=== PATIENT | female | born 1955 | race Two or more races ===

== ENCOUNTER 2016-05-24 08:36 | Emergency (ER) | payer MEDICAID, OTHER ==
[~2016-05-24] VITALS: Ht 170.2 cm; Wt 99.8 kg
[2016-05-24 08:45] VITALS: BP 142/88
[2016-05-24] MEDS ORDERED: KETOROLAC TROMETH 60MG/2ML VIAL IM ONE (10:45)
== END 2016-05-24 11:28 | disposition home or self-care (01) ==
LOC: ER 08:37
DX: S00.03XA Contusion of scalp, initial encounter (principal); S70.12XA Contusion of left thigh, initial encounter; M17.9 Osteoarthritis of knee, unspecified; V43.52XA Car driver injured in collision with other type car in traffic accident, initial encounter; Y93.89 Activity, other specified; Y99.8 Other external cause status; Y92.488 Other paved roadways as the place of occurrence of the external cause
CPT/HCPCS: 70450; 96372; 99284; J1885

== ENCOUNTER 2021-03-08 13:27 | Emergency (ER) | payer MEDICARE, OTHER ==
[~2021-03-08] VITALS: Ht 167.6 cm; Wt 99.8 kg
[2021-03-08 14:45] VITALS: BP 123/64
[2021-03-08] MEDS ORDERED: cefTRIAXone SOD 1,000 MG VL IM ONE (15:00)
[2021-03-08] MEDS ORDERED: HYDROcodone-ACET 5/325MG TAB PO ONE (15:00)
== END 2021-03-08 15:32 | disposition home or self-care (01) ==
LOC: ER 13:27
DX: K02.9 Dental caries, unspecified (principal); I10 Essential (primary) hypertension; E78.5 Hyperlipidemia, unspecified
CPT/HCPCS: 96372; 99283; J0696

== ENCOUNTER 2021-05-03 18:10 | Emergency (ER) | payer MEDICARE, OTHER ==
[~2021-05-03] VITALS: Ht 160 cm; Wt 102.1 kg
[2021-05-03 22:00] LABS: Basophils # (auto) 0.1 10 ^3/uL (0-0.2); Basophils % (auto) 0.4 % (0.0-2.0); Eosinophils # (auto) 0.2 10 ^3/uL (0-0.8); Eosinophils % (auto) 1.7 % (0.0-7.0); Hematocrit 41.2 % (36.0-46.0); Hemoglobin 13.6 g/dL (12.2-16.2); Lymphocytes # (auto) 1.3 10 ^3/uL (0.4-5.4); Mean Corpuscular Hemoglobin 30.9 pg (28.0-32.0); Mean Corpuscular Hgb Conc. 32.9 g/dL (32.0-36.0); Mean Corpuscular Volume 93.7 fL (80.0-100.0); Monocytes # (auto) 0.6 10 ^3/uL (0-1.3); Monocytes % (auto) 4.4 % (0.0-12.0); Neutrophils # (auto) 12.2 10 ^3/uL (1.6-8.6); Neutrophils % (auto) 84.5 % (37.0-80.0); Red Cell Distribution Width 14.2 % (11.8-14.3); White Blood Cell 14.4 10^3/uL (4.4-10.8)
[2021-05-03 22:21] LABS: Albumin 4.1 g/dL (3.4-5.0); Calcium 9.8 mg/dL (8.5-10.1); Potassium 3.5 mmol/L (3.5-5.1)
[2021-05-03 22:23] LABS: BUN/Creatinine Ratio 13.6
[2021-05-03 22:26] LABS: Bilirubin, Total 0.8 mg/dL (0.2-1.0); Total Protein 7.3 g/dL (6.4-8.2)
[2021-05-03 23:37] LABS: Urine Bacteria NONE SEEN /hpf (None Seen); Urine Blood Negative /uL (Negative); Urine Hyaline Cast MANY /lpf (0 - 2); Urine Mucus MANY (None Seen); Urine Specific Gravity 1.025 (1.001-1.035); Urine WBC 27 /hpf (0 - 5)
[2021-05-04] MEDS ORDERED: ONDANSETRON ODT 4 MG TAB PO ONE ×2 (01:15→01:44)
[2021-05-04] MEDS ORDERED: DICYCLOMINE HCL (10MG/ML) 2 ML AMPULE IM ONE ×2 (01:15→01:45)
[2021-05-04 01:55] VITALS: BP 105/82
== END 2021-05-04 02:01 | disposition home or self-care (01) ==
LOC: ER 18:12
DX: R19.7 Diarrhea, unspecified (principal); I10 Essential (primary) hypertension; E78.5 Hyperlipidemia, unspecified; F12.10 Cannabis abuse, uncomplicated
CPT/HCPCS: 36415; 80053; 81001; 85025; 93005; 96372; 99284; J0500; Q0162

== ENCOUNTER 2021-05-10 13:57 | Inpatient (IN) | payer MEDICARE, OTHER ==
[~2021-05-10] VITALS: Ht 170.2 cm; Wt 101.6 kg
[2021-05-10] MEDS ORDERED: SODIUM CHLORIDE 0.9% 500 ML IV ONE (14:15)
[2021-05-10 14:46] LABS: Basophils # (auto) 0 10 ^3/uL (0-0.2); Basophils % (auto) 0.3 % (0.0-2.0); Eosinophils # (auto) 0.2 10 ^3/uL (0-0.8); Eosinophils % (auto) 1.7 % (0.0-7.0); Hematocrit 40.5 % (36.0-46.0); Hemoglobin 13.6 g/dL (12.2-16.2); Lymphocytes # (auto) 1.1 10 ^3/uL (0.4-5.4); Mean Corpuscular Hemoglobin 30.7 pg (28.0-32.0); Mean Corpuscular Hgb Conc. 33.6 g/dL (32.0-36.0); Mean Corpuscular Volume 91.3 fL (80.0-100.0); Monocytes % (auto) 7.2 % (0.0-12.0); Neutrophils % (auto) 82.8 % (37.0-80.0); Nucleated Red Blood Cells % 0.1 %; Red Blood Cells 4.44 10^6/uL (4.0-5.20); White Blood Cell 13.2 10^3/uL (4.4-10.8)
[2021-05-10] MEDS ORDERED: IOHEXOL 300 MG/ML 100ML BOTTLE IJ ONE (14:48)
[2021-05-10 15:02] LABS: Albumin 3.5 g/dL (3.4-5.0); Calcium 9.3 mg/dL (8.5-10.1)
[2021-05-10 15:08] LABS: BUN/Creatinine Ratio 13.4; Bilirubin, Total 0.5 mg/dL (0.2-1.0); Total Protein 7.1 g/dL (6.4-8.2)
[2021-05-10] MEDS ORDERED: SODIUM CHLORIDE 0.9% 1,000 ML IV ONE ×2 (16:30→18:15)
[2021-05-10 19:40] LABS: Urine Bacteria NONE SEEN /hpf (None Seen); Urine Blood Negative /uL (Negative); Urine Specific Gravity 1.009 (1.001-1.035); Urine WBC 4 /hpf (0 - 5)
[2021-05-10] MEDS ORDERED: ONDANSETRON HCL 4 MG/2 ML VIAL BC ONE (21:15)
[2021-05-10] MEDS ORDERED: ACETAMINOPHEN 325 MG TAB PO PRN (21:45)
[2021-05-10] MEDS ORDERED: ONDANSETRON HCL 4 MG/2 ML VIAL IV PRN (21:45)
[2021-05-10] MEDS ORDERED: POTASSIUM CHL 20 Meq TABLET PO ONE (21:45)
[2021-05-10] MEDS ORDERED: PANTOPRAZOLE 40 MG TAB PO ONE (21:45)
[2021-05-10] MEDS: metroNIDAZOLE 500MG/100ML 100 ML IV SCH (22:45)
[2021-05-10] MEDS: HYDROcodone-ACET 5/325MG TAB PO PRN (23:37)
[2021-05-11 05:30] VITALS: BP 96/59
[2021-05-11] MEDS: metroNIDAZOLE 500MG/100ML 100 ML IV SCH ×3 (05:41→22:01)
[2021-05-11] MEDS: HYDROcodone-ACET 5/325MG TAB PO PRN ×4 (05:55→22:01)
[2021-05-11 08:34] LABS: Basophils # (auto) 0 10 ^3/uL (0-0.2); Basophils % (auto) 0.2 % (0.0-2.0); Eosinophils # (auto) 0.3 10 ^3/uL (0-0.8); Eosinophils % (auto) 1.9 % (0.0-7.0); Hemoglobin 11.6 g/dL (12.2-16.2); Lymphocytes # (auto) 0.8 10 ^3/uL (0.4-5.4); Lymphocytes % (auto) 6.4 % (10.0-50.0); Mean Corpuscular Hemoglobin 29.6 pg (28.0-32.0); Mean Corpuscular Hgb Conc. 32.2 g/dL (32.0-36.0); Mean Corpuscular Volume 91.9 fL (80.0-100.0); Monocytes # (auto) 0.9 10 ^3/uL (0-1.3); Neutrophils # (auto) 11.1 10 ^3/uL (1.6-8.6); Neutrophils % (auto) 84.5 % (37.0-80.0); Nucleated Red Blood Cells % 0.1 %; Red Blood Cells 3.91 10^6/uL (4.0-5.20); Red Cell Distribution Width 13.7 % (11.8-14.3); White Blood Cell 13.2 10^3/uL (4.4-10.8)
[2021-05-11 08:52] LABS: Albumin 2.7 g/dL (3.4-5.0); Calcium 8.1 mg/dL (8.5-10.1); Potassium 3.2 mmol/L (3.5-5.1)
[2021-05-11 08:57] LABS: BUN/Creatinine Ratio 16.4; Bilirubin, Total 0.4 mg/dL (0.2-1.0); Total Protein 5.7 g/dL (6.4-8.2)
[2021-05-11] MEDS ORDERED: PANTOPRAZOLE 40 MG TAB PO SCH (10:00)
[2021-05-11] MEDS: SOD CHL 0.9%/ KCL 40MEQ 1,000 ML IV SCH (14:49)
[2021-05-11 22:00] VITALS: BP 106/59
[2021-05-12] MEDS ORDERED: INFLUENZA QUAD 2021-2022 0.5 ML SYRG IM ONE (01:45)
[2021-05-12] MEDS ORDERED: LOSA-69 PO (01:51)
[2021-05-12] MEDS ORDERED: CHOL20007 PO (01:51)
[2021-05-12] MEDS ORDERED: APIX5TAB PO (01:51)
[2021-05-12] MEDS ORDERED: METO25TA5 PO (01:51)
[2021-05-12] MEDS: SOD CHL 0.9%/ KCL 40MEQ 1,000 ML IV SCH ×2 (03:17→18:12)
[2021-05-12 05:00] VITALS: BP 106/59
[2021-05-12] MEDS: metroNIDAZOLE 500MG/100ML 100 ML IV SCH (05:58)
[2021-05-12 06:36] LABS: Basophils # (auto) 0 10 ^3/uL (0-0.2); Basophils % (auto) 0.3 % (0.0-2.0); Eosinophils # (auto) 0.6 10 ^3/uL (0-0.8); Eosinophils % (auto) 5.7 % (0.0-7.0); Hematocrit 34.4 % (36.0-46.0); Hemoglobin 11.3 g/dL (12.2-16.2); Lymphocytes % (auto) 9.5 % (10.0-50.0); Mean Corpuscular Hemoglobin 30.4 pg (28.0-32.0); Mean Corpuscular Hgb Conc. 32.9 g/dL (32.0-36.0); Mean Corpuscular Volume 92.2 fL (80.0-100.0); Monocytes # (auto) 0.8 10 ^3/uL (0-1.3); Neutrophils # (auto) 8.3 10 ^3/uL (1.6-8.6); Neutrophils % (auto) 77.5 % (37.0-80.0); Nucleated Red Blood Cells % 0.1 %; Red Blood Cells 3.73 10^6/uL (4.0-5.20); Red Cell Distribution Width 13.8 % (11.8-14.3); White Blood Cell 10.7 10^3/uL (4.4-10.8)
[2021-05-12 07:08] LABS: BUN/Creatinine Ratio 15.6; Calcium 8.3 mg/dL (8.5-10.1); Potassium 3.2 mmol/L (3.5-5.1)
[2021-05-12 08:00] VITALS: BP 102/65
[2021-05-12 08:44] VITALS: BP 104/63
[2021-05-12] MEDS ORDERED: VANCOMYCIN HCL 125MG/5ML ORAL SOL PO ONE (09:00)
[2021-05-12] MEDS ORDERED: MORPHINE SULFATE INJECTION 2 MG/ML SYRG IV PRN (10:15)
[2021-05-12] MEDS ORDERED: NITROGLYCERIN 0.4 MG SL TAB SL PRN (10:15)
[2021-05-12] MEDS: HYDROcodone-ACET 5/325MG TAB PO PRN ×2 (10:18→21:23)
[2021-05-12] MEDS: VANCOMYCIN HCL 125MG/5ML ORAL SOL PO SCH ×2 (12:00→18:12)
[2021-05-12 13:03] VITALS: BP 102/65
[2021-05-12] MEDS: SODIUM CHLOR 0.9% PF (SALINE LOCK) 10ML VIAL/SYR IV SCH (13:05)
[2021-05-12 16:30] VITALS: BP 99/63
[2021-05-12 22:00] VITALS: BP 107/63
[2021-05-13] MEDS: VANCOMYCIN HCL 125MG/5ML ORAL SOL PO SCH ×4 (00:02→18:02)
[2021-05-13] MEDS: SODIUM CHLOR 0.9% PF (SALINE LOCK) 10ML VIAL/SYR IV SCH ×4 (00:37→22:00)
[2021-05-13 05:31] LABS: BUN/Creatinine Ratio 15.8; Calcium 8.5 mg/dL (8.5-10.1); Potassium 3.7 mmol/L (3.5-5.1)
[2021-05-13] MEDS: HYDROcodone-ACET 5/325MG TAB PO PRN ×3 (05:45→22:58)
[2021-05-13] MEDS: SOD CHL 0.9%/ KCL 40MEQ 1,000 ML IV SCH ×2 (06:15→19:35)
[2021-05-13 08:00] VITALS: BP 101/59
[2021-05-13 09:00] VITALS: BP 101/59
[2021-05-13 13:00] VITALS: BP 121/73
[2021-05-13 16:49] VITALS: BP 97/60
[2021-05-13 22:00] VITALS: BP 99/62
[2021-05-14] MEDS: VANCOMYCIN HCL 125MG/5ML ORAL SOL PO SCH ×5 (00:05→20:00)
[2021-05-14] MEDS: HYDROcodone-ACET 5/325MG TAB PO PRN ×3 (04:26→21:17)
[2021-05-14 05:00] VITALS: BP 112/69
[2021-05-14] MEDS: SODIUM CHLOR 0.9% PF (SALINE LOCK) 10ML VIAL/SYR IV SCH ×3 (06:07→22:00)
[2021-05-14 06:29] LABS: Basophils # (auto) 0 10 ^3/uL (0-0.2); Basophils % (auto) 0.5 % (0.0-2.0); Eosinophils # (auto) 0.5 10 ^3/uL (0-0.8); Eosinophils % (auto) 6.5 % (0.0-7.0); Hematocrit 33.4 % (36.0-46.0); Hemoglobin 11.3 g/dL (12.2-16.2); Lymphocytes # (auto) 1.1 10 ^3/uL (0.4-5.4); Lymphocytes % (auto) 14.1 % (10.0-50.0); Mean Corpuscular Hemoglobin 30.9 pg (28.0-32.0); Mean Corpuscular Hgb Conc. 33.7 g/dL (32.0-36.0); Mean Corpuscular Volume 91.8 fL (80.0-100.0); Monocytes # (auto) 0.6 10 ^3/uL (0-1.3); Monocytes % (auto) 7.2 % (0.0-12.0); Neutrophils # (auto) 5.8 10 ^3/uL (1.6-8.6); Neutrophils % (auto) 71.7 % (37.0-80.0); Nucleated Red Blood Cells % 0.1 %; Red Blood Cells 3.64 10^6/uL (4.0-5.20); Red Cell Distribution Width 13.8 % (11.8-14.3); White Blood Cell 8.1 10^3/uL (4.4-10.8)
[2021-05-14 06:45] LABS: Potassium 3.9 mmol/L (3.5-5.1)
[2021-05-14 06:56] LABS: Albumin 2.6 g/dL (3.4-5.0); BUN/Creatinine Ratio 10.8; Bilirubin, Total 0.3 mg/dL (0.2-1.0); Calcium 8.2 mg/dL (8.5-10.1); Total Protein 5.6 g/dL (6.4-8.2)
[2021-05-14] MEDS: SOD CHL 0.9%/ KCL 40MEQ 1,000 ML IV SCH ×2 (08:00→14:44)
[2021-05-14 09:00] VITALS: BP 115/64
[2021-05-14 12:53] VITALS: BP 110/55
[2021-05-14 17:13] VITALS: BP 98/59
[2021-05-14 20:00] VITALS: BP 103/65
[2021-05-14 22:00] VITALS: BP 103/65
[2021-05-15] MEDS: VANCOMYCIN HCL 125MG/5ML ORAL SOL PO SCH ×4 (00:33→18:08)
[2021-05-15 05:00] VITALS: BP 122/69
[2021-05-15] MEDS: SODIUM CHLOR 0.9% PF (SALINE LOCK) 10ML VIAL/SYR IV SCH ×3 (06:08→22:36)
[2021-05-15] MEDS: HYDROcodone-ACET 5/325MG TAB PO PRN ×4 (06:08→22:52)
[2021-05-15 07:06] LABS: Basophils # (auto) 0 10 ^3/uL (0-0.2); Basophils % (auto) 0.6 % (0.0-2.0); Eosinophils # (auto) 0.5 10 ^3/uL (0-0.8); Eosinophils % (auto) 9.6 % (0.0-7.0); Hematocrit 33.7 % (36.0-46.0); Hemoglobin 11.2 g/dL (12.2-16.2); Lymphocytes # (auto) 1.5 10 ^3/uL (0.4-5.4); Lymphocytes % (auto) 26.3 % (10.0-50.0); Mean Corpuscular Hemoglobin 30.7 pg (28.0-32.0); Mean Corpuscular Hgb Conc. 33.1 g/dL (32.0-36.0); Mean Corpuscular Volume 92.7 fL (80.0-100.0); Monocytes # (auto) 0.5 10 ^3/uL (0-1.3); Monocytes % (auto) 8.8 % (0.0-12.0); Neutrophils # (auto) 3.1 10 ^3/uL (1.6-8.6); Neutrophils % (auto) 54.7 % (37.0-80.0); Nucleated Red Blood Cells % 0.1 %; Red Blood Cells 3.64 10^6/uL (4.0-5.20); Red Cell Distribution Width 13.7 % (11.8-14.3); White Blood Cell 5.7 10^3/uL (4.4-10.8)
[2021-05-15 08:38] VITALS: BP 107/65
[2021-05-15] MEDS: SOD CHL 0.9%/ KCL 40MEQ 1,000 ML IV SCH (11:35)
[2021-05-15 13:00] VITALS: BP 109/68
[2021-05-15 16:42] VITALS: BP 99/67
[2021-05-15 20:00] VITALS: BP 108/72
[2021-05-15 22:00] VITALS: BP 108/72
[2021-05-15] MEDS: APIXABAN 5 MG TAB PO SCH (22:50)
[2021-05-16] MEDS: VANCOMYCIN HCL 125MG/5ML ORAL SOL PO SCH ×3 (00:25→12:20)
[2021-05-16] MEDS: SOD CHL 0.9%/ KCL 40MEQ 1,000 ML IV SCH (01:58)
[2021-05-16] MEDS: SODIUM CHLOR 0.9% PF (SALINE LOCK) 10ML VIAL/SYR IV SCH (05:25)
[2021-05-16] MEDS: HYDROcodone-ACET 5/325MG TAB PO PRN ×2 (06:02→10:35)
[2021-05-16 08:56] VITALS: BP 98/67
[2021-05-16] MEDS: APIXABAN 5 MG TAB PO SCH (09:20)
[2021-05-16] MEDS ORDERED: VANC250PO PO (11:04)
[2021-05-16 12:47] VITALS: BP 129/72
== END 2021-05-16 13:41 | disposition home or self-care (01) | DRG 371 ==
LOC: ER 13:57 → OVERFLOW 21:36 → CENTRAL 05-11 19:42
PROVIDERS: ADMIT Nurse Practitioner; ATTEND Internal Medicine
DX: A04.72 Enterocolitis due to Clostridium difficile, not specified as recurrent (principal); N17.0 Acute kidney failure with tubular necrosis; I48.92 Unspecified atrial flutter; E86.0 Dehydration; E78.5 Hyperlipidemia, unspecified; F12.90 Cannabis use, unspecified, uncomplicated; E87.8 Other disorders of electrolyte and fluid balance, not elsewhere classified; K86.89 Other specified diseases of pancreas; I10 Essential (primary) hypertension; I48.91 Unspecified atrial fibrillation; K76.0 Fatty (change of) liver, not elsewhere classified; Z79.01 Long term (current) use of anticoagulants; E66.01 Morbid (severe) obesity due to excess calories; Z68.36 Body mass index [BMI] 36.0-36.9, adult; Z79.899 Other long term (current) drug therapy; Z20.822 Contact with and (suspected) exposure to COVID-19
CPT/HCPCS: 36415; 71045; 74176; 80048; 80053; 81001; 82270; 82784; 83516; 84484; 85025; 86255; 87045; 87426; 87427; 87493; 90686; 93005; 96360; 96361; G0378; J2405; J3490

== ENCOUNTER → 2022-03-02 | Outpatient (CLI) | payer MEDICARE, OTHER ==
[~2022-03-02] VITALS: Ht 170.2 cm; Wt 104.3 kg
[~2022-03-02] MED LIST: ADENOSINE 88 MG in GIVE UN-DILUTED 0 ML IV ONE; APIX5TAB PO; CHOL20007 PO; VANC250PO PO
== END | disposition home or self-care (01) ==
LOC: XYW 07:11
PROVIDERS: ATTEND Internal Medicine
DX: I10 Essential (primary) hypertension (principal); R00.2 Palpitations; R06.02 Shortness of breath; I49.3 Ventricular premature depolarization; A04.72 Enterocolitis due to Clostridium difficile, not specified as recurrent; Z98.890 Other specified postprocedural states; Z86.79 Personal history of other diseases of the circulatory system
CPT/HCPCS: 78452; 93017; A9500; J0153